=== PATIENT | male | born 2005 | race Caucasian/White ===

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

== ENCOUNTER 2024-01-03 20:40 | Emergency (ER) | payer OTHER ==
[2024-01-03 20:57] VITALS: BP 125/68; PULSE 78; RESP 16; TEMP 97.8; BMI 24.4
[2024-01-03] MEDS: IBUPROFEN 600 MG TABLET (FP) PO ONE (21:16)
[2024-01-03] MEDS ORDERED: IBUPROFEN 400 MG TABLET (FP) PO ONE (21:16)
== END 2024-01-03 22:02 | disposition home or self-care (01) ==
LOC: FER 20:40
DX: S93.402A Sprain of unspecified ligament of left ankle, initial encounter (principal); M25.572 Pain in left ankle and joints of left foot; R22.42 Localized swelling, mass and lump, left lower limb; X50.1XXA Overexertion from prolonged static or awkward postures, initial encounter
CPT/HCPCS: 73610-TC-LT-FY; 73630-TC-LT; 99283-25